=== PATIENT | male | born 1985 | race Hispanic/Latino ===

== ENCOUNTER → 2020-10-17 11:59 | Outpatient (ROUT) | payer OTHER, SELFPAY ==
[2020-10-17 13:04] LABS: COVID19 -Nasal RAPID Negative (Negative)
== END ==
PROVIDERS: Visit Provider Family Medicine
DX: R05 Cough (principal); R52 Pain, unspecified
CPT/HCPCS: 87635

== ENCOUNTER → 2021-02-06 12:39 | Outpatient (ROUT) | payer OTHER, SELFPAY ==
[2021-02-06 13:09] LABS: COVID19 -Nasal RAPID POSITIVE (Negative)
== END ==
PROVIDERS: Visit Provider Family Medicine
DX: U07.1 COVID-19 (principal)
CPT/HCPCS: 87635

== ENCOUNTER → 2022-06-08 13:13 | Outpatient (CLI) | payer OTHER, SELFPAY ==
--- NOTE | 2022-06-08 | DI.MRI.S_ITS ---
PROCEDURE: MR KNEE LT WO CON INDICATIONS: STRAIN OF LEFT KNEE TECHNIQUE: Noncontrast sagittal PD fast spin echo and T2 fast spin echo with fat saturation, sagittal 3-D FLASH with fat saturation; coronal T1 spin echo and PD fast spin echo with fat saturation, and axial PD fast spin echo with fat saturation through the knee. COMPARISON: [facility] Outside Film, RG, KNEE 3VW (LT), 04/15/2022, 15:38. FINDINGS: Image quality: Excellent. Anterior Cruciate Ligament: Intact. Posterior Cruciate Ligament: Intact. Medial Collateral Ligament: Intact. Lateral Collateral Ligament: Intact. Medial Meniscus: Subtle signal abnormality is seen in the peripheral portion of the medial meniscus at the junction of the posterior horn and body extending to the outer third of the tibial articular surface that may represent a subtle horizontal oblique tear. Lateral Meniscus: Partial discoid configuration of the lateral meniscus is seen without a discrete meniscal tear. Medial and Lateral Tendons: The semimembranosus tendon insertions and meniscocapsular junction appear intact. Visualized portions of the pes anserinus tendons appear normal. No abnormal bursal fluid. The long and short heads of the biceps femoris tendon appear intact. The popliteus tendon appears intact. No signs of posterolateral corner injury. Iliotibial band appears normal. Anterior Structures: The quadriceps and patellar tendons appear intact. No patellar subluxation. No femoral trochlear dysplasia or ventral trochlear prominence. No edema in the infrapatellar fat pad. Bones: No acute trabecular bone injury or fracture. A lobular circumscribed T2-hyperintense lesion is seen in the medullary cavity of the distal femur with interspersed fat. Calcified chondroid matrix is seen on prior radiographs. Findings are consistent with a benign enchondroma. Medial Femorotibial Cartilage: Intact. Lateral Femorotibial Cartilage: Intact. Patellofemoral Cartilage: Intact. Soft Tissues: There is a medium sized joint effusion. A small medial popliteal cyst is present. A small amount of fluid tracking along the popliteus tendon sheath. Mild nonspecific subcutaneous prepatellar edema is present. The musculature surrounding the knee is normal in bulk. IMPRESSION: 1. Suspected subtle peripheral horizontal oblique tear the junction of the posterior horn and body of the medial meniscus extending to the outer third of the tibial articular surface. 2. Partial discoid appearance of the lateral meniscus without a discrete meniscal tear. 3. Intact cruciate and collateral ligaments. No acute trabecular bone injury. No focal cartilage defect. 4. Intramedullary lesion at the distal femoral metaphysis has imaging features most consistent with a benign enchondroma. 5. Moderate joint effusion. Small medial and lateral popliteal cysts. Dictated by: Jack Barbour M.D. on 06/08/2022 at 15:06 Approved by: Jack Barbour M.D. on 06/08/2022 at 15:21
== END ==
PROVIDERS: Referring Provider Orthopaedic Surgery; Visit Provider Orthopaedic Surgery
DX: S86.912A Strain of unspecified muscle(s) and tendon(s) at lower leg level, left leg, initial encounter (principal); M25.462 Effusion, left knee; M89.9 Disorder of bone, unspecified; M71.22 Synovial cyst of popliteal space [Baker], left knee
CPT/HCPCS: 73721

== ENCOUNTER 2022-06-18 12:31 | Emergency (ER) | payer OTHER, SELFPAY ==
[2022-06-18 12:49] VITALS: BP 184/111; PULSE 96; RESP 16; TEMP 36.4; O2SAT 100; BMI 30.2
--- NOTE | 2022-06-18 13:09 | ED_ITS ---
HPI - Psych General Chief Complaint: Psychiatric Symptoms Stated Complaint: Withdraws from alcohol. Time Seen by Provider: 06/18/22 12:56 Source: patient Mode of arrival: Ambulatory History of Present Illness HPI Narrative: Patient is a healthy 37-year-old presenting today for alcohol detox and suicidal ideations. He is going through a divorce with his . He states a 50 50 custody of the children. He gets them for a week at a time. He said during that week he feels good and purposeful. However when he does not have his children he says he drinks excessively and has thoughts of hurting himself. Although he has never tried or tempted to hurt himself. He feels just quite depressed. He is angry as his had an affair. He also is on leave from work due to a left knee injury. 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 He does not like living in [facility] he would much rather live in [place] where his family is. However his children are here so he will stay here. 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 He is looking for help with alcohol and depression. Review of Systems Review of Systems Narrative: GENERAL: Denies chills,fever HEENT: Denies throat pain RESPIRATORY: Denies dyspnea, cough, wheezing CARDIOVASCULAR: Denies chest pain, palpitations GASTROINTESTINAL: Denies nausea, vomiting MUSCULOSKELETAL: Denies extremity pain, injury SKIN: No rash, no laceration, no pruritus NEUROLOGIC: Denies weakness, dizziness, headache, numbness PSYCH: See HPI 8 point review of systems is negative except for those stated above and HPI Patient History Social History Smoking Status: Never smoker Smoking Status: Never smoker alcohol intake frequency: 3 or more drinks per day Alcohol type: beer Substance Use Type: does not use Exam Initial Vital Signs Initial Vital Signs: Vital Signs Temperature 97.6 F 06/18/22 12:49 Pulse Rate 96 H 06/18/22 12:49 Respiratory Rate 16 06/18/22 12:49 Blood Pressure 184/111 H 06/18/22 12:49 Pulse Oximetry 100 06/18/22 12:49 Oxygen Delivery Method 06/18/22 12:49 GENERAL: Well-appearing, well-nourished and in no acute distress. HEENT: Head atraumatic,EOMI, pupils reactive, face symmetric, moist mucous membranes CARDIOVASCULAR: Regular rate and rhythm without murmurs, rubs or gallops. RESPIRATORY: Breath sounds equal bilaterally, no wheezes rales or rhonchi. ABDOMEN: Soft, nontender. Normoactive bowel sounds all 4 quadrants. No guarding or rebound. EXTREMITIES: Normal range of motion, no clubbing or edema. Neurovascularly intact NEUROLOGICAL: Alert and oriented x4. SKIN: Warm, dry, no laceration, no petechiae, no rashes or lesions. Course Orders Ordered: ED Orders 06/18/22 13:20 Consult to CONSULTING SYSTEMS ENGINEER - Starch Mangle Tender Stat Vital Signs Vital signs: Vital Signs - 8 hr 06/18/22 12:49 06/18/22 14:22 Temperature 97.6 F Pulse Rate 96 H 85 Respiratory Rate 16 18 Blood Pressure 184/111 H 187/114 H Pulse Oximetry 100 100 Oxygen Delivery Method Room Air Room Air MDM - Psych MDM Narrative Medical decision making narrative: At this time patient is not suicidal. He is not going through DTs. He is here with his mother. He is given outpatient resources by social Work. He is also encouraged to come back if he should need it any time. Discharge Plan Departure Patient Disposition: Home Clinical Impression: Alcohol abuse, Depression Instructions: Depression, DI for Alcohol Use Disorder Activity Restrictions/Additional Instructions: *You have been diagnosed with depression *What to do: Your going through of very hard thing. Social work will call you with resources *Continue to take medications as directed *Follow up with your primary care provider in 2-3 days or call [phone] *Return to ER if you should have suicidal thoughts, depression, shaking hallucinations or any new, worsening or concerning symptoms Referrals: Miscellaneous,Doctor, MD [Primary Care Provider] - Visit Report Forms: Patient Portal/API
[2022-06-18 14:22] VITALS: BP 187/114; PULSE 85; RESP 18; O2SAT 100
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
--- NOTE | 2022-06-18 17:46 | CM.SWNOTE ---
BIOPHARMACEUTICAL REP f/u Note BIOPHARMACEUTICAL REP calls patient and leaves VM stating that PCP clinic will call patient to schedule appt. BIOPHARMACEUTICAL REP provides contact information if patient has any further questions. BIOPHARMACEUTICAL REP reviews EMR and patient is scheduled PCP ED f/u appt with PCP Dr. Pelayo for tomorrow 06/19/22 at 2:30 PM. GERARDO Sarmiento
== END 2022-06-18 14:22 | disposition home or self-care (01) ==
PROVIDERS: Emergency Provider Emergency Medicine
DX: F10.10 Alcohol abuse, uncomplicated (principal); F32.A Depression, unspecified
CPT/HCPCS: 99283

== ENCOUNTER → 2022-06-19 15:48 | Outpatient (CLI) | payer OTHER, SELFPAY ==
[2022-06-19 16:23] LABS: Add Manual Diff / Slide Review NO; Basophils Absolute Auto 0 /uL (0-100); Basophils Percent Auto 0.5 % (0-2); Eosinophils Absolute Auto 100 /uL (0-450); Hematocrit 40.8 % (41-53); Hemoglobin 14.4 g/dL (13.5-17.5); Lymphocytes Absolute Auto 1300 /uL (1100-4500); Lymphocytes Percent Auto 21.3 % (25-40); Mean Corpuscular HGB Conc 35.4 % (30-36); Mean Corpuscular Hemoglobin 33.1 PG (26-34); Mean Corpuscular Volume 93.5 fL (80-100); Monocytes Absolute Auto 400 /uL (0-900); Monocytes Percent Auto 7.3 % (3-14); Neutrophils Absolute Auto 4100 /uL (1500-7000); Neutrophils Percent Auto 69.9 % (50-75); Platelet Count 267 X10^3/uL (150-400); Red Blood Cell Count 4.37 X10^6/uL (4.5-5.9); Red Cell Distribution Width 13.1 % (11.6-14.8); White Blood Cell Count 5.9 X10^3/uL (4.5-11.0)
[2022-06-19 16:24] LABS: Alanine Aminotransferase 138 IU/L (<50); Albumin 4.4 g/dL (3.5-5.0); Albumin Globulin Ratio 1.2 (1.0-2.8); Alkaline Phosphatase 88 U/L (38-126); Aspartate Aminotransferase 108 IU/L (17-59); BUN Creatinine Ratio 16.9 (6-22); Bilirubin Total 0.7 mg/dL (0.2-1.3); Blood Urea Nitrogen 12 mg/dL (9-20); Calcium 9.5 mg/dL (8.4-10.2); Carbon Dioxide 27 mmol/L (22-32); Chloride 99 mmol/L (98-107); Estimated Glomerular Filt Rate > 60 mL/min (>60); Globulin 3.6 g/dL (1.7-4.1); Glucose 302 mg/dL (70-100); HEMOLYSIS < 15 (0-50); Potassium 4.3 mmol/L (3.4-5.1); Sodium 135 mmol/L (137-145)
[2022-06-19 16:50] LABS: UR Morphine/Opiate cutoff 300 Negative (Negative); Ur Creatinine Normal (Normal); Ur Specific Gravity Normal (Normal); Urine Amphetamines Negative (Negative); Urine Barbiturates Negative (Negative); Urine Benzodiazepines Negative (Negative); Urine Cocaine Negative (Negative); Urine MDMA Negative (Negative); Urine Methadone Negative (Negative); Urine Methamphetamines Negative (Negative); Urine Oxycodone Negative (Negative); Urine Phencyclidine Negative (Negative); Urine Tetrahydrocannabinol Negative (Negative); Urine Tricyclic Antidepressant Negative (Negative); Urine pH Normal (Normal)
[2022-06-19 16:54] LABS: TSH w/ Reflex to FT4 1.43 uIU/mL (0.47-4.68)
[2022-06-19 19:07] LABS: Erythrocyte Sedimentation Rate 13 MM/HR (0-15)
[2022-06-20 07:18] LABS: Hemoglobin A1C% w Est Avg Glu 9.1 % (4.0-6.0)
== END ==
PROVIDERS: PCP Pediatrics; Referring Provider Pediatrics; Visit Provider Pediatrics
DX: F10.10 Alcohol abuse, uncomplicated (principal); F32.A Depression, unspecified; I10 Essential (primary) hypertension; R73.9 Hyperglycemia, unspecified
CPT/HCPCS: 36415; 80053; 80305; 83036; 84443; 85025; 85651

== ENCOUNTER 2023-07-08 19:15 | Emergency (ER) | payer OTHER, MEDICAID, SELFPAY ==
[2023-07-08] VITALS (11 sets, daily range): BP systolic 102–145; BP diastolic 63–85; PULSE 70–91; RESP 14; TEMP 36.4–37.9; O2SAT 92–96
[2023-07-08] MEDS: SODIUM CHLORIDE 0.9% 500 ML 1000 ML IV (19:30)
[2023-07-08 19:45] LABS: Acetaminophen < 10 ug/mL (10-30); Alanine Aminotransferase 32 IU/L (<50); Albumin 4.5 g/dL (3.5-5.0); Albumin Globulin Ratio 1.2 (1.0-2.8); Alkaline Phosphatase 78 U/L (38-126); Aspartate Aminotransferase 36 IU/L (17-59); Bilirubin Total 0.3 mg/dL (0.2-1.3); Blood Urea Nitrogen 9 mg/dL (9-20); Carbon Dioxide 28 mmol/L (22-32); Chloride 98 mmol/L (98-107); Estimated Glomerular Filt Rate > 60 mL/min (>60); Globulin 3.8 g/dL (1.7-4.1); Glucose 299 mg/dL (70-100); HEMOLYSIS < 15 (0-50); Potassium 4.4 mmol/L (3.4-5.1); Salicylate < 1.0 mg/dL (<20); Sodium 140 mmol/L (137-145); Total Protein 8.3 g/dL (6.3-8.2)
[2023-07-08 19:48] LABS: COVID19 -Nasal RAPID Negative (Negative)
[2023-07-08 19:53] LABS: Add Manual Diff / Slide Review NO; Basophils Absolute Auto 0 /uL (0-100); Basophils Percent Auto 0.3 % (0-2); Eosinophils Absolute Auto 100 /uL (0-450); Eosinophils Percent Auto 0.7 % (2-4); Hematocrit 45.4 % (41-53); Lymphocytes Absolute Auto 4000 /uL (1100-4500); Lymphocytes Percent Auto 45.1 % (25-40); Mean Corpuscular HGB Conc 35.2 % (30-36); Mean Corpuscular Hemoglobin 33.7 PG (26-34); Mean Corpuscular Volume 95.6 fL (80-100); Monocytes Absolute Auto 800 /uL (0-900); Monocytes Percent Auto 9.6 % (3-14); Neutrophils Absolute Auto 3900 /uL (1500-7000); Neutrophils Percent Auto 44.3 % (50-75); Platelet Count 328 X10^3/uL (150-400); Red Blood Cell Count 4.74 X10^6/uL (4.5-5.9); Red Cell Distribution Width 14.6 % (11.6-14.8); White Blood Cell Count 8.8 X10^3/uL (4.5-11.0)
[2023-07-08 20:01] LABS: Free T4, Direct Thyroxine 0.87 ng/dL (0.78-2.19)
[2023-07-08 20:25] LABS: Ethanol (ETOH) 369 mg/dL
--- NOTE | 2023-07-08 21:56 | ED.ALCOHOL ---
HPI - Alcohol General Chief Complaint: Toxicology Problem Stated Complaint: ETOH Time Seen by Provider: 07/08/23 21:54 Source: patient and EMS Mode of arrival: EMS History of Present Illness HPI narrative: Patient 38-year-old male presents today with alcohol intoxication. He was found happened half out of his car states that he drove after drinking alcohol to go to his son's baseball game. After being in the ED he now reports that that is a huge mistake he is extremely tearful. He reports that he is suicidal when he drinks but he is no longer suicidal he wants to be around for his kids. He states that he is very depressed. He has not seen his kids for his month his ex- has been keeping his kids from him. Adamant that he not want to hurt himself reports that he has a good job. He is in AA does not seem to be helping a whole lot. He denies drinking daily but seems to binge drink. He denies any injury Related Data Previous Rx's Medication Instructions Recorded blood sugar diagnostic (Blood #100 ea 07/13/22 Glucose Test strips) blood-glucose meter #1 ea 07/13/22 lancets 33 gauge (BD Ultra Fine #100 ea 07/13/22 Lancets) lisinopril 20 mg tablet 20 mg PO DAILY #90 tabs 11/07/22 atenolol 50 mg tablet (Tenormin) 50 mg PO DAILY #90 tabs 05/01/23 sertraline 50 mg tablet 50 mg PO DAILY anxiety and 05/01/23 depression #90 tabs metformin 1,000 mg tablet See Rx Instructions .Route 05/15/23 .COMPLEX #90 tabs Allergies Allergy/AdvReac Type Severity Reaction Status Date / Time No Known Drug Allergies Allergy Verified 07/08/23 19:24 Review of Systems Review of Systems ROS Unobtainable: All systems reviewed & are unremarkable except as noted in HPI and below Patient History Medical History (Updated 07/08/23 @ 23:21 by Jina Lee DO) DM type 2 (diabetes mellitus, type 2) Hearing loss Hypertension (~2013) Leukemia (~2013) Family History (Updated 07/02/22 @ 20:27 by Elisa Waterman) Father Status post bilateral hip replacements Hypertension Mother Diabetes mellitus Hypertension Hyperlipidemia Fibromyalgia Social History Smoking Status: Never smoker Smoking Status: Never smoker alcohol intake frequency: 3 or more drinks per day Alcohol type: beer Substance Use Type: does not use Exam Initial Vital Signs Initial Vital Signs: Vital Signs Temperature 100.3 F H 07/08/23 19:21 Pulse Rate 70 07/08/23 19:21 Respiratory Rate 14 07/08/23 19:21 Blood Pressure 122/78 07/08/23 19:21 Pulse Oximetry 93 07/08/23 19:21 Oxygen Delivery Method Room Air 07/08/23 19:21 GENERAL: Alert well-appearing 38 old male HEENT: Head atraumatic,EOMI, pupils reactive, face symmetric, moist mucous membranes CARDIOVASCULAR: Regular rate and rhythm without murmurs, rubs or gallops. RESPIRATORY: Breath sounds equal bilaterally, no wheezes rales or rhonchi. ABDOMEN: Soft, nontender. Normoactive bowel sounds all 4 quadrants. No guarding or rebound. EXTREMITIES: Normal range of motion, no clubbing or edema. Neurovascularly intact NEUROLOGICAL: Alert and oriented x4. SKIN: Warm, dry, no laceration, no petechiae, no rashes or lesions. Course Orders Ordered: ED Orders 07/08/23 19:26 Acetaminophen Stat Complete Blood Count AUTO DIFF Stat Comprehensive Metabolic Panel Stat Ethanol (ETOH) Stat Free T4, Direct Thyroxine Stat Salicylate Stat Thyroid Stimulating Hormone Stat 07/08/23 19:29 COVID19 -Nasal RAPID Stat 07/08/23 21:57 Urine Drug Screen, Rapid Stat 07/08/23 22:10 CT head/brain wo con Stat Discontinued Medications Sodium Chloride (Sodium Chloride 0.9% 500 Ml) 1,000 ml IV BOLUS ONE Stop: 07/08/23 19:47 Last Admin: 07/08/23 19:30 Dose: 1,000 ml Documented By: Vital Signs Vital signs: Vital Signs - 8 hr 07/08/23 20:00 07/08/23 20:00 07/08/23 20:30 Temperature Pulse Rate 88 90 Blood Pressure 102/63 Pulse Oximetry 92 92 07/08/23 21:00 07/08/23 21:00 07/08/23 21:30 Temperature Pulse Rate 83 85 Blood Pressure 123/77 Pulse Oximetry 96 92 07/08/23 22:00 07/08/23 22:00 07/08/23 22:15 Temperature 97.6 F Pulse Rate 88 Blood Pressure 145/85 H Pulse Oximetry 96 MDM - Alcohol Lab Data 07/08/23 19:26 07/08/23 19:26 Labs: Lab Results 07/08/23 07/08/23 07/08/23 Range/Units 19:26 19:26 19:26 WBC 8.8 (4.5-11.0) X10^3/uL RBC 4.74 (4.5-5.9) X10^6/uL Hgb 16.0 (13.5-17.5) g/dL Hct 45.4 (41-53) % MCV 95.6 (80-100) fL MCH 33.7 (26-34) PG MCHC 35.2 (30-36) % RDW 14.6 (11.6-14.8) % Plt Count 328 (150-400) X10^3/uL Neut % (Auto) 44.3 L (50-75) % Lymph % (Auto) 45.1 H (25-40) % [place] % (Auto) 9.6 (3-14) % Eos % (Auto) 0.7 L (2-4) % Baso % (Auto) 0.3 (0-2) % Neut # (Auto) 3900 (2505-4327) /uL Lymph # (Auto) 4000 (9929-5263) /uL [place] # (Auto) 800 (0-900) /uL Eos # (Auto) 100 (0-450) /uL Baso # (Auto) 0 (0-100) /uL Sodium 140 (137-145) mmol/L Potassium 4.4 (3.4-5.1) mmol/L Chloride 98 (98-107) mmol/L Carbon Dioxide 28 (22-32) mmol/L BUN 9 (9-20) mg/dL Creatinine 0.82 (0.66-1.25) mg/dL Estimated GFR > 60 (>60) mL/min BUN/Creatinine Ratio 11.0 (6-22) Glucose 299 H (70-100) mg/dL Calcium 9.0 (8.4-10.2) mg/dL Total Bilirubin 0.3 (0.2-1.3) mg/dL AST 36 (17-59) IU/L ALT 32 (<50) IU/L Alkaline Phosphatase 78 (38-126) U/L Total Protein 8.3 H (6.3-8.2) g/dL Albumin 4.5 (3.5-5.0) g/dL Globulin 3.8 (1.7-4.1) g/dL Albumin/Globulin Ratio 1.2 (1.0-2.8) TSH 0.810 (0.47-4.68) uIU/mL Free T4 0.87 (0.78-2.19) ng/dL Salicylates < 1.0 (<20) mg/dL U Opiates 300ng/mL cut (Negative) Ur Oxycodone Screen (Negative) Urine Methadone Screen (Negative) Acetaminophen < 10 (10-30) ug/mL Ur Barbiturates Screen (Negative) U Tricyclic Antidepress (Negative) Ur Phencyclidine Scrn (Negative) Ur Amphetamines Screen (Negative) U Methamphetamines Scrn (Negative) Ur MDMA Scrn (Ecstasy) (Negative) U Benzodiazepines Scrn (Negative) Urine Cocaine Screen (Negative) U Marijuana (THC) Screen (Negative) Ethyl Alcohol 369 H ( - 10) mg/dL SARS-CoV-2 (PCR) (Negative) 07/08/23 07/08/23 Range/Units 19:29 21:57 WBC (4.5-11.0) X10^3/uL RBC (4.5-5.9) X10^6/uL Hgb (13.5-17.5) g/dL Hct (41-53) % MCV (80-100) fL MCH (26-34) PG MCHC (30-36) % RDW (11.6-14.8) % Plt Count (150-400) X10^3/uL Neut % (Auto) (50-75) % Lymph % (Auto) (25-40) % [place] % (Auto) (3-14) % Eos % (Auto) (2-4) % Baso % (Auto) (0-2) % Neut # (Auto) (0188-5224) /uL Lymph # (Auto) (2443-1057) /uL [place] # (Auto) (0-900) /uL Eos # (Auto) (0-450) /uL Baso # (Auto) (0-100) /uL Sodium (137-145) mmol/L Potassium (3.4-5.1) mmol/L Chloride (98-107) mmol/L Carbon Dioxide (22-32) mmol/L BUN (9-20) mg/dL Creatinine (0.66-1.25) mg/dL Estimated GFR (>60) mL/min BUN/Creatinine Ratio (6-22) Glucose (70-100) mg/dL Calcium (8.4-10.2) mg/dL Total Bilirubin (0.2-1.3) mg/dL AST (17-59) IU/L ALT (<50) IU/L Alkaline Phosphatase (38-126) U/L Total Protein (6.3-8.2) g/dL Albumin (3.5-5.0) g/dL Globulin (1.7-4.1) g/dL Albumin/Globulin Ratio (1.0-2.8) TSH (0.47-4.68) uIU/mL Free T4 (0.78-2.19) ng/dL Salicylates (<20) mg/dL U Opiates 300ng/mL cut Negative (Negative) Ur Oxycodone Screen Negative (Negative) Urine Methadone Screen Negative (Negative) Acetaminophen (10-30) ug/mL Ur Barbiturates Screen Negative (Negative) U Tricyclic Antidepress Negative (Negative) Ur Phencyclidine Scrn Negative (Negative) Ur Amphetamines Screen Negative (Negative) U Methamphetamines Scrn Negative (Negative) Ur MDMA Scrn (Ecstasy) Negative (Negative) U Benzodiazepines Scrn Negative (Negative) Urine Cocaine Screen Negative (Negative) U Marijuana (THC) Screen Negative (Negative) Ethyl Alcohol ( - 10) mg/dL SARS-CoV-2 (PCR) Negative (Negative) Point of Care Testing Glucose POC 293 Urine Dip Bedside Urine Glucose 500 mg/dl Bedside Urine Bilirubin - Negative Bedside Urine Ketone - Negative Urine Specific [place] 1.005 Bedside Urine Occult Blood - Negative Bedside Urine pH 6.0 Bedside Urine Protein - Negative Bedside Urine Urobilinogen - Negative Bedside Urine Nitrite - Negative Bedside Urine Leukocytes - Negative Esterase Imaging Data CT scan - head: Radiologist's Impressoin: PROCEDURE:? CT HEAD/BRAIN WO CON ? INDICATIONS:? etoh found unresponsive ? TECHNIQUE:? Noncontrast 4.5 mm thick angled axial sections acquired from the foramen magnum to the vertex, with coronal and sagittal reformats.? For radiation dose reduction, the following was used:? automated exposure control, adjustment of mA and/or kV according to patient size.? ? COMPARISON:? [facility], CT, CT HEAD WITHOUT CONTRAST, 11/18/2021, 19:20. ? FINDINGS:? Image quality:? Excellent.? ? CSF spaces:? Basal cisterns are patent.? No extra-axial fluid collections.? Ventricles are normal in size and shape.? ? Brain:? No intracranial hemorrhage or midline shift.? Luis-white matter interface appears preserved.? Left parafalcine calcification measuring up to 1.6 cm redemonstrated.? ? Skull and face:? Calvarium and visualized facial bones are intact, without suspicious lesions.? ? Sinuses:? Visualized sinuses and mastoids are clear.? ? IMPRESSION:? ? 1. No acute intracranial abnormality.? ? ? Dictated by: Carlos Dykes M.D. on 07/08/2023 at 23:14 MDM Narrative Medical decision making narrative: Alert 38-year-old male no tearful after few hours in the ED. He is intoxicated with alcohol level of 369. He admits that he screwed up drinking and driving. He thinks that he probably was suicidal but is no longer suicidal. He admits to being depressed wanting help with depression alcohol abuse. He does go to AA does not feel like it is quite working. Other blood work has been reviewed clinical significant. Head CT ordered and is negative secondary to EtOH found unresponsive in a car. There is no evidence trauma. Blood work has been reviewed only pertinent lab value is alcohol at 369. No elevation of bilirubin liver enzymes. No leukocytosis or anemia. Son at bedside to take him home Discharge Plan Departure Patient Disposition: Home Clinical Impression: Alcoholic intoxication Instructions: DI for Alcohol Use Disorder Activity Restrictions/Additional Instructions: *You have been diagnosed with alcohol intoxication *What to do: At this time I recommend [facility] or other dual placement for alcohol withdrawal and mental health. If you are feeling suicidal or having suicidal thoughts: Call: Suicide Hotline: 288 Visit: www.[employer]org Text: 356735 *Continue to take medications as directed *Follow up with your primary care provider in 2-3 days or call [phone] *Return to ER if you should have shaking tremors seizure or any new, worsening or concerning symptoms Prescriptions: No Action (DME) Blood Glucose Test Strip See Rx Instructions .ROUTE .MEDSUPPLY Qty: 100 3RF Rx Instructions: Check BG 1x daily (DME) lancets [BD Ultra Fine Lancets] 33 gauge misc See Rx Instructions .ROUTE .MEDSUPPLY Qty: 100 3RF Rx Instructions: check BG 1x daily (DME) blood-glucose meter Kit See Rx Instructions .ROUTE .MEDSUPPLY Qty: 1 0RF Rx Instructions: As directed sertraline 50 mg tablet 50 mg PO DAILY Qty: 90 0RF Rx Instructions: take with methylfolate. atenolol [Tenormin] 50 mg tablet 50 mg PO DAILY Qty: 90 0RF metformin 1,000 mg tablet See Rx Instructions .ROUTE .COMPLEX Qty: 90 0RF Dose Instruction: TAKE 1 TABLET BY MOUTH TWICE DAILY WITH MEALS, CAN START WITH 1/2 TABLET AND INCREASE TO 1 TABLET TWICE DAILY TOLERATED. Rx Instructions: TAKE 1 TABLET BY MOUTH TWICE DAILY WITH MEALS, CAN START WITH 1/2 TABLET AND INCREASE TO 1 TABLET TWICE DAILY TOLERATED. lisinopril 20 mg tablet 20 mg PO DAILY Qty: 90 0RF Referrals: Miri Pineda DO [Primary Care Provider] - Stand Alone Forms: Patient Portal/API
--- NOTE | 2023-07-08 22:10 | DI.CT.S_ITS ---
PROCEDURE: CT HEAD/BRAIN WO CON INDICATIONS: etoh found unresponsive TECHNIQUE: Noncontrast 4.5 mm thick angled axial sections acquired from the foramen magnum to the vertex, with coronal and sagittal reformats. For radiation dose reduction, the following was used: automated exposure control, adjustment of mA and/or kV according to patient size. COMPARISON: [facility], CT, CT HEAD WITHOUT CONTRAST, 11/18/2021, 19:20. FINDINGS: Image quality: Excellent. CSF spaces: Basal cisterns are patent. No extra-axial fluid collections. Ventricles are normal in size and shape. Brain: No intracranial hemorrhage or midline shift. Luis-white matter interface appears preserved. Left parafalcine calcification measuring up to 1.6 cm redemonstrated. Skull and face: Calvarium and visualized facial bones are intact, without suspicious lesions. Sinuses: Visualized sinuses and mastoids are clear. IMPRESSION: 1. No acute intracranial abnormality. Dictated by: Carlos Dykes M.D. on 07/08/2023 at 23:14 Approved by: Carlos Dykes M.D. on 07/08/2023 at 23:16
[2023-07-08 22:25] LABS: UR Morphine/Opiate cutoff 300 Negative (Negative); Ur Creatinine Normal (Normal); Ur Specific Gravity Normal (Normal); Urine Amphetamines Negative (Negative); Urine Barbiturates Negative (Negative); Urine Benzodiazepines Negative (Negative); Urine Cocaine Negative (Negative); Urine MDMA Negative (Negative); Urine Methadone Negative (Negative); Urine Methamphetamines Negative (Negative); Urine Oxycodone Negative (Negative); Urine Phencyclidine Negative (Negative); Urine Tetrahydrocannabinol Negative (Negative); Urine Tricyclic Antidepressant Negative (Negative); Urine pH Normal (Normal)
--- NOTE | 2023-07-08 22:40 | PC.NURSE ---
Pt removed own IV. Bleeding controlled. Pt also removed hospital band. Pt pacing in room. Aware of needing to wait for safe ride home and results of CT head before discharge. Pt redirectable at this time.
== END 2023-07-08 23:25 | disposition home or self-care (01) ==
PROVIDERS: Emergency Provider Emergency Medicine; PCP Family Medicine
DX: F10.129 Alcohol abuse with intoxication, unspecified (principal); Y90.8 Blood alcohol level of 240 mg/100 ml or more; Z20.822 Contact with and (suspected) exposure to COVID-19
CPT/HCPCS: 36415; 70450; 80053; 80305; 80320; 80329; 81003; 82962; 84439; 84443; 85025; 87635; 99284; C9803; G0480

== ENCOUNTER 2023-08-13 17:51 | Emergency (ER) | payer OTHER, MEDICAID, SELFPAY ==
[2023-08-13 17:54] VITALS: BP 192/115; PULSE 107; RESP 20; TEMP 36.6; O2SAT 99; BMI 29.8
[2023-08-13] MEDS: SODIUM CHLORIDE 0.9% 1,000 ML 1000 ML IV (19:00)
[2023-08-13] MEDS: PHENobarbital 65 MG/ML VIAL 260 MG IV (19:00)
--- NOTE | 2023-08-13 19:00 | CM.SWNOTE ---
TELEGRAPHIC TYPEWRITER OPERATOR CHIEF Assessment TELEGRAPHIC TYPEWRITER OPERATOR CHIEF - Computer Graphic Designer Assessment TELEGRAPHIC TYPEWRITER OPERATOR CHIEF/Computer Graphic Designer Assessment Time Spent with Patient Start date 08/13/23 Visit Start Time 18:20 End date 08/13/23 Visit End Time 18:35 Total time Care Management spent on 15 minutes patient visit-in minutes Mental Health Screening Include Onset, Duration, Intensity Presenting Problem Patient presents to ED with son via POV due to concern for SI and depression, patient endorses he has been drinking ETOH daily to cope. Patient endorses his last drink was a 1/5 of vodka and his last drink was last night. Patient endorses he has had thoughts of killing self by overdose, patient denies current SI. Patient endorses when he has been drinking he has been fighting with others, experiencing thoughts that people are out to get him. Patient denies intent to harm or kill anyone. Precipitating Event(s) Patient endorses he has been experiencing a difficult divorce and custody brewer. Patient endorses he has not seen his daughter for a few months. Patient Strengths Patient is voluntary and seeking help. Current Behavioral Health Provider(s) No current MH providers, Include Facility, Provider, Ph. # patient states that he thinks he needs something more than outpatient . Psych. Hx Mental Health and Chemical Patient endorses he is Dependency experiencing anxiety, Depression and SI. Patient has rx for Sertraline [address] Pineda. Patient endorses daily ETOH of 1/5 of vodka. Patient denies any other substances. Family Hx of Behavioral Abuse None reported Psychiatric Hospitalizations (date(s)/ no hx location) Psychosocial information & Support Patient is 38 y/o male who Systems resides in [place]. Patient has support from his 16 y/o son and friends. Patient's mother is listed as contact as well. School/Work Patient works at [employer] Substance Abuse Screening Include Onset, Duration, Intensity Rehab Facilities? ((Date(s), Location(s) No hx ) Patient previously endorsed he has tried AA in the past but it has not been successful. Legal Concerns Legal Matters - Outstanding Issues Patient endorses hx of reckless driving charge, patient denies current charges Mental Status Orientation (Person/Place/Time) A/Ox4 Stated Mood I need help, I'm here for help Affect (Congruent with Mood?) dysthymic, congruent with mood , full range. Thought Content - Specify/Describe Patient endorses hx of hearing Obsessions, Delusions, Hallucinations voices, he states it sounds like the devil inside me. Patient endorses that voices say a lot of things and endorses they are intrusive thoughts. Patient endorses he sees shadows sometimes. Patient endorses paranoia and states he is always worried someone is out to get him and thinks he needs to be on the defense, on edge. Thought Processes (Sengcwv-Dajgbxzf-Krqv coherent, goal oriented Mmszwtpc-Hbikauwj-Qkxkbvbvvm- Ycjoqyvkqgbcsj-Vljjylx-Omzssmpvvtjw- Thought Blocking) Speech (Fiyfqn-Rvbt-Zuqehve-Rapid-Soft- normal/rapid Loud-Pressured) Motor (Rktkll-Olrdpmsld-Uqoj-Other) normal Insight (Auub-Mjih-Jfzm/Limited) fair Judgement (Udmu-Ahys-Iykr/Limited) fair Impulse Control (Adequate-Impaired) adequate Memory (Qlyhceunj-Flpaue-Uhrlax, intact, not formally assessed Impaired-Intact) Concentration (Intact-Impaired) intact Attention (Intact-Impaired) intact Behavior (Appropriate-Inappropriate) appropriate Additional Comment Patient presents as calm, communicative and cooperative. Risk Assessment Suicidal Ideation (Plan) Yes Homicidal Ideation (Plan) No Comment Patient endorses increase in thoughts of and SI. Patient endorses he has had thoughts of overdosing on pills and taking everything. Patient denies current SI. Patient endorses he is here seeking help and wants to address these thoughts. Patient endorses thoughts of HI, denies intent to harm or kill anyone. Patient endorses when he is drinking sometimes he is on edge and will get into physical fights. Patient denies intent to do so. When asked if patient will agree to follow rules and be appropriate with other patients at facility, patient agrees to do so. Intervention Intervention TELEGRAPHIC TYPEWRITER OPERATOR CHIEF enters room to meet with patient, present in room is patient's son. Patient provides consent for 16 y/o son to be present. Patient endorses significant life stressors, SI, hopelessness and depression. Patient endorses he has been coping with ETOH and has been drinking at least a 1/5 of vodka daily. Patient endorses intrusive thoughts, VH, AH and paranoia. Patient endorses that he is seeking inpatient treatment to address substance use and SI. Patient endorses he does not think that outpatient will be helpful at this time and he is in a crisis and in need of emergent help. Patient has presented to the ED twice in the last year with similar presentation and patient has not sought inpatient yet. It is the opinion of this TELEGRAPHIC TYPEWRITER OPERATOR CHIEF that patient is appropriate for and will benefit from voluntary inpatient co- occurring treatment for safety, crisis stabilization and medication management. TELEGRAPHIC TYPEWRITER OPERATOR CHIEF reviews this with ED provider Dr. Rebollar, who indicates agreement and understanding. ED provider to evaluate patient and determine medical clearance. Plan RA Plan ED team to seek dual diagnosis inpatient treatment for patient upon medical clearance . Bethany Douglas, [facility]
[2023-08-13 19:09] LABS: Add Manual Diff / Slide Review NO; Basophils Absolute Auto 100 /uL (0-100); Basophils Percent Auto 0.9 % (0-2); Eosinophils Absolute Auto 100 /uL (0-450); Eosinophils Percent Auto 1.7 % (2-4); Hematocrit 47.5 % (41-53); Hemoglobin 17.1 g/dL (13.5-17.5); Lymphocytes Absolute Auto 3000 /uL (1100-4500); Lymphocytes Percent Auto 51.8 % (25-40); Mean Corpuscular HGB Conc 35.9 % (30-36); Mean Corpuscular Hemoglobin 34.3 PG (26-34); Mean Corpuscular Volume 95.5 fL (80-100); Monocytes Absolute Auto 400 /uL (0-900); Monocytes Percent Auto 6.8 % (3-14); Neutrophils Absolute Auto 2300 /uL (1500-7000); Neutrophils Percent Auto 38.8 % (50-75); Platelet Count 373 X10^3/uL (150-400); Red Blood Cell Count 4.98 X10^6/uL (4.5-5.9); Red Cell Distribution Width 13.5 % (11.6-14.8); White Blood Cell Count 5.9 X10^3/uL (4.5-11.0)
[2023-08-13 19:10] LABS: Appearance Urine UA CLEAR; Bilirubin Urine UA NEGATIVE (NEGATIVE); Color Urine UA YELLOW; Glucose Urine UA NEGATIVE (Negative); Ketones Urine UA TRACE (NEGATIVE); Leukocyte Esterase Urine UA NEGATIVE (NEGATIVE); Nitrite Urine UA NEGATIVE (Negative); Occult Blood Urine UA NEGATIVE (Negative); Protein Urine UA 1+ (Negative); Specific Gravity Urine UA 1.025 (1.000-1.035); Urobilinogen Urine UA 0.2 E.U./dL (0.2); pH Urine UA 5.5 (4.5-8.0)
[2023-08-13 19:14] LABS: UR Morphine/Opiate cutoff 300 Negative (Negative); Ur Creatinine Normal (Normal); Ur Specific Gravity Normal (Normal); Urine Amphetamines Negative (Negative); Urine Barbiturates Negative (Negative); Urine Benzodiazepines Negative (Negative); Urine Cocaine Negative (Negative); Urine MDMA Negative (Negative); Urine Methadone Negative (Negative); Urine Methamphetamines Negative (Negative); Urine Oxycodone Negative (Negative); Urine Phencyclidine Negative (Negative); Urine Tetrahydrocannabinol Negative (Negative); Urine Tricyclic Antidepressant Negative (Negative); Urine pH Normal (Normal)
[2023-08-13 19:17] LABS: COVID19 -Nasal RAPID Negative (Negative)
[2023-08-13 19:18] VITALS: PULSE 95; RESP 18; O2SAT 96
[2023-08-13 19:21] LABS: Acetaminophen < 10 ug/mL (10-30); Alanine Aminotransferase 136 IU/L (<50); Albumin Globulin Ratio 1.1 (1.0-2.8); Alkaline Phosphatase 117 U/L (38-126); Aspartate Aminotransferase 138 IU/L (17-59); BUN Creatinine Ratio 11.6 (6-22); Bilirubin Total 0.7 mg/dL (0.2-1.3); Blood Urea Nitrogen 8 mg/dL (9-20); Carbon Dioxide 22 mmol/L (22-32); Chloride 101 mmol/L (98-107); Estimated Glomerular Filt Rate > 60 mL/min (>60); Ethanol (ETOH) 289 mg/dL; Globulin 4.5 g/dL (1.7-4.1); Glucose 129 mg/dL (70-100); Potassium 4.2 mmol/L (3.4-5.1); Salicylate < 1.0 mg/dL (<20); Sodium 143 mmol/L (137-145); Total Protein 9.5 g/dL (6.3-8.2)
[2023-08-13 19:22] LABS: RBC Urine 0-1/HPF (0-5/HPF); WBC Urine 0-1/HPF (0-5/HPF)
[2023-08-13 19:23] LABS: Bacteria Urine Occasional (0-1); Culture Indicated Urine Cult Not Indicated; Hyaline Casts Urine 1-5/LPF; Squamous Epithelial Cell Urine 0-1 /HPF (0-5/HPF)
[2023-08-13 19:29] LABS: HEMOLYSIS 62 (0-50)
[2023-08-13 20:20] VITALS: BP 183/106; PULSE 103; RESP 18; O2SAT 99
--- NOTE | 2023-08-13 20:45 | ED_ITS ---
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 Patient presents with complaint of states he is almost type he has been depressed he is had thoughts of harming himself he had a plan to take a bunch of pills and overdose. He states he does not have access to any pills. He does not feel suicidal at this time. Patient states that he does think he would benefit from some treatment for his alcohol use and mental health. He states he does sometimes hear voices that tell him to . He states he does not have any other specific statements that they make. He states sometimes sees shadows but does not really see any other visual hallucinations. He notes he does sometimes get very angry easily not usually particular people but states he more in general situations. He states that has been going on for a couple years. He does not feel like he is currently going through any active alcohol withdrawal. He states his last drink was 230 in the morning. Patient states he does follow with a physician for his medications. He is never had any inpatient psychiatric treatment. He is never taken any psychiatric or mental health medications. Patient after discussion would like inpatient treatment but is reluctant to stay tonight he states he is feeling improved. He has a dog he needs to take care of and would like to return tomorrow. He contracts for safety. He states he has responsible family members that he is willing to stay with this evening. Related Data Previous Rx's Medication Instructions Recorded blood sugar diagnostic (Blood #100 ea 07/13/22 Glucose Test strips) blood-glucose meter #1 ea 07/13/22 lancets 33 gauge (BD Ultra Fine #100 ea 07/13/22 Lancets) lisinopril 20 mg tablet 20 mg PO DAILY #90 tabs 11/07/22 atenolol 50 mg tablet (Tenormin) 50 mg PO DAILY #90 tabs 05/01/23 sertraline 50 mg tablet 50 mg PO DAILY anxiety and 05/01/23 depression #90 tabs metformin 1,000 mg tablet See Rx Instructions .Route 05/15/23 .COMPLEX #90 tabs olanzapine 2.5 mg tablet (Zyprexa) 2.5 mg PO BEDTIME #10 tabs 08/13/23 Allergies Allergy/AdvReac Type Severity Reaction Status Date / Time No Known Drug Allergies Allergy Verified 07/08/23 19:24 Review of Systems Review of Systems ROS Unobtainable: All systems reviewed & are unremarkable except as noted in HPI and below Patient History Medical History DM type 2 (diabetes mellitus, type 2) Hearing loss Leukemia (~2013) Hypertension (~2013) Family History Father Status post bilateral hip replacements Hypertension Mother Diabetes mellitus Hypertension Hyperlipidemia Fibromyalgia Social History Smoking Status: Never smoker Smoking Status: Never smoker alcohol intake frequency: 3 or more drinks per day Alcohol type: beer and hard liquor Substance Use Type: does not use Exam Narrative Exam Narrative: GENERAL: Alert and oriented x three, well-appearing male in mild distress. HEENT: Head normocephalic, atraumatic, EOMI, pupils reactive, face symmetric, moist mucous membranes NECK: Supple, full range of motion CARDIOVASCULAR: Regular rate and rhythm without murmurs, rubs or gallops. RESPIRATORY: Breath sounds equal bilaterally, no wheezes rales or rhonchi. ABDOMEN: Soft, nontender. Normoactive bowel sounds all 4 quadrants. No guarding or rebound, rigidity, no mass : No CVA tenderness EXTREMITIES: Normal range of motion, no clubbing or edema. Neurovascularly intact NEUROLOGICAL: Cranial nerves II through XII grossly intact. Moving all extremities, no tremor. Clear speech. SKIN: Warm, dry, no petechiae, no rashes or lesions. PSYCH: Suicidal thoughts, no current active intent. Sometimes has anger issues but denies any homicidal thoughts or intent. Describes some auditory hallucinations with voices that say . Sees shadows but no other visual hallucinations. Initial Vital Signs Initial Vital Signs: Vital Signs Temperature 97.8 F 08/13/23 17:54 Pulse Rate 107 H 08/13/23 17:54 Respiratory Rate 20 08/13/23 17:54 Blood Pressure 192/115 H 08/13/23 17:54 Pulse Oximetry 99 08/13/23 17:54 Oxygen Delivery Method Room Air 08/13/23 17:54 Course Orders Ordered: Discontinued Medications Sodium Chloride (Normal Saline 0.9%) 1,000 mls @ 1,000 mls/hr IV BOLUS ONE Stop: 08/13/23 19:32 Last Infusion: 08/13/23 20:08 Dose: Infused Documented By: Admin: 08/13/23 19:00 Dose: 1,000 mls/hr Documented By: ZEE Olanzapine (Olanzapine 2.5 Mg Tablet) 2.5 mg PO NOW ONE Stop: 08/13/23 21:21 Last Admin: 08/13/23 21:39 Dose: 2.5 mg Documented By: ELISEO Phenobarbital (Phenobarbital 65 Mg/Ml Vial) 260 mg IV NOW ONE Stop: 08/13/23 18:35 Last Admin: 08/13/23 19:00 Dose: 260 mg Documented By: ZEE Vital Signs Vital signs: Vital Signs - 8 hr 08/13/23 22:23 Pulse Rate 104 H Respiratory Rate 20 Blood Pressure 171/102 H Pulse Oximetry 98 Oxygen Delivery Method Room Air MDM - Psych Lab Data 08/13/23 18:50 08/13/23 18:50 Labs: Lab Results 08/13/23 08/13/23 Range/Units 18:50 18:55 WBC 5.9 (4.5-11.0) X10^3/uL RBC 4.98 (4.5-5.9) X10^6/uL Hgb 17.1 (13.5-17.5) g/dL Hct 47.5 (41-53) % MCV 95.5 (80-100) fL MCH 34.3 H (26-34) PG MCHC 35.9 (30-36) % RDW 13.5 (11.6-14.8) % Plt Count 373 (150-400) X10^3/uL Neut % (Auto) 38.8 L (50-75) % Lymph % (Auto) 51.8 H (25-40) % [place] % (Auto) 6.8 (3-14) % Eos % (Auto) 1.7 L (2-4) % Baso % (Auto) 0.9 (0-2) % Neut # (Auto) 2300 (2407-5199) /uL Lymph # (Auto) 3000 (1536-7899) /uL [place] # (Auto) 400 (0-900) /uL Eos # (Auto) 100 (0-450) /uL Baso # (Auto) 100 (0-100) /uL Sodium 143 (137-145) mmol/L Potassium 4.2 (3.4-5.1) mmol/L Chloride 101 (98-107) mmol/L Carbon Dioxide 22 (22-32) mmol/L BUN 8 L (9-20) mg/dL Creatinine 0.69 (0.66-1.25) mg/dL Estimated GFR > 60 (>60) mL/min BUN/Creatinine Ratio 11.6 (6-22) Glucose 129 H (70-100) mg/dL Calcium 10.0 (8.4-10.2) mg/dL Total Bilirubin 0.7 (0.2-1.3) mg/dL AST 138 H (17-59) IU/L ALT 136 H (<50) IU/L Alkaline Phosphatase 117 (38-126) U/L Total Protein 9.5 H (6.3-8.2) g/dL Albumin 5.0 (3.5-5.0) g/dL Globulin 4.5 H (1.7-4.1) g/dL Albumin/Globulin Ratio 1.1 (1.0-2.8) Urine Color Yellow Urine Appearance Clear Urine pH 5.5 (4.5-8.0) Ur Specific [place] 1.025 (1.000-1.035) Urine Protein 1+ H (Negative) Urine Glucose (UA) Negative (Negative) g/dL Urine Ketones Trace H (NEGATIVE) Urine Occult Blood Negative (Negative) Urine Nitrate Negative (Negative) Urine Bilirubin Negative (NEGATIVE) Urine Urobilinogen 0.2 (0.2) E.U./dL Ur Leukocyte Esterase Negative (NEGATIVE) Urine RBC 0-1/hpf (0-5/HPF) Urine WBC 0-1/hpf (0-5/HPF) Ur Squamous Epith Cells 0-1 /hpf (0-5/HPF) Urine Bacteria Occasional (0-1) (None) Hyaline Casts 1-5/lpf (None) Ur Culture Indicated? Cult not indicated Salicylates < 1.0 (<20) mg/dL U Opiates 300ng/mL cut Negative (Negative) Ur Oxycodone Screen Negative (Negative) Urine Methadone Screen Negative (Negative) Acetaminophen < 10 (10-30) ug/mL Ur Barbiturates Screen Negative (Negative) U Tricyclic Antidepress Negative (Negative) Ur Phencyclidine Scrn Negative (Negative) Ur Amphetamines Screen Negative (Negative) U Methamphetamines Scrn Negative (Negative) Ur MDMA Scrn (Ecstasy) Negative (Negative) U Benzodiazepines Scrn Negative (Negative) Urine Cocaine Screen Negative (Negative) U Marijuana (THC) Screen Negative (Negative) Ethyl Alcohol 289 H ( - 10) mg/dL SARS-CoV-2 (PCR) Negative (Negative) ECG Data Attestation: I personally reviewed and interpreted this ECG as follows: Interpretation: Sinus tachycardia rate of 103 ME 174 QRS 80 QTC [address] No acute ST changes. MDM Narrative Medical decision making narrative: 38-year-old male who presents with alcohol abuse as well as possible schizoaffective. Patient has never been formally seen he does describe some auditory hallucinations which sound like have been going on for several years and not just associated with when he stops drinking alcohol. Patient has medical treatment for diabetes and hypertension. He is ETOH is 289. He did receive a dose of phenobarbital and states he does not feel like he is having withdrawal symptoms currently. Drug screen, salicylates tox and labs are otherwise negative and patient is medically cleared. After discussion patient is interested inpatient treatment but does not wish to stay overnight which may happen while searching for a bed. He was open to trying a dose of oral Zyprexa see if this is helpful. Also open to being watched for a little bit after he received us to make sure did not sedate him too much but he would like to be discharged. Patient is agreeable to having via lay reach out to him in the morning to help set up resources and to continue to search for treatment. He agrees that dual diagnosis treatment would be likely helpful. He did meet with our BUSINESS PLANNING DIRECTOR earlier. [facility] contacted and will reach out to patient during the day for follow up call. Discharge Plan Departure Patient Disposition: Home Clinical Impression: Alcohol abuse, Depression with suicidal ideation Instructions: DI for Suicidal Ideation-Adult Activity Restrictions/Additional Instructions: Please follow up with [facility], they are going to reach out to you to help with resources and options for treatment. If you miss their phone call call them back within 30-60 minutes. You may take Zyprexa 1 tablet nightly before bed. If this medication is helpful it can be titrated upwards. You do not have to continue this medication and you can stop it at any time if you are finding that it is having any negative effects. If you're feeling suicidal or having suicidal thoughts, contact the suicide hotline (this is also self referral for resources and assistance through [facility]). . Please return if you are having thoughts of harming yourself or others, if you do not feel you can keep yourself safe, if you are having new or worsening hallucinations or other new or concerning changes. Prescriptions: New olanzapine [Zyprexa] 2.5 mg tablet 2.5 mg PO BEDTIME Qty: 10 0RF No Action (DME) Blood Glucose Test Strip See Rx Instructions .ROUTE .MEDSUPPLY Qty: 100 3RF Rx Instructions: Check BG 1x daily (DME) lancets [BD Ultra Fine Lancets] 33 gauge misc See Rx Instructions .ROUTE .MEDSUPPLY Qty: 100 3RF Rx Instructions: check BG 1x daily (DME) blood-glucose meter Kit See Rx Instructions .ROUTE .MEDSUPPLY Qty: 1 0RF Rx Instructions: As directed sertraline 50 mg tablet 50 mg PO DAILY Qty: 90 0RF Rx Instructions: take with methylfolate. atenolol [Tenormin] 50 mg tablet 50 mg PO DAILY Qty: 90 0RF metformin 1,000 mg tablet See Rx Instructions .ROUTE .COMPLEX Qty: 90 0RF Dose Instruction: TAKE 1 TABLET BY MOUTH TWICE DAILY WITH MEALS, CAN START WITH 1/2 TABLET AND INCREASE TO 1 TABLET TWICE DAILY TOLERATED. Rx Instructions: TAKE 1 TABLET BY MOUTH TWICE DAILY WITH MEALS, CAN START WITH 1/2 TABLET AND INCREASE TO 1 TABLET TWICE DAILY TOLERATED. lisinopril 20 mg tablet 20 mg PO DAILY Qty: 90 0RF Referrals: Miri Pineda DO [Primary Care Provider] - Stand Alone Forms: Patient Portal/API
--- NOTE | 2023-08-13 20:45 | PC.NURSE ---
Provider made aware of patient presentation and vital signs. No new orders at this time.
[2023-08-13] MEDS: OLANZapine 2.5 MG TABLET PO (21:39)
--- NOTE | 2023-08-13 21:49 | PC.NURSE ---
MANAGER EDUCATIONAL NOTE: contacted [facility], regarding resolution appt per dr. Rebollar
[2023-08-13 22:23] VITALS: BP 171/102; PULSE 104; RESP 20; O2SAT 98
--- NOTE | 2023-08-14 05:00 | PC.NURSE ---
COMMUNICATIONS SCIENTIST/OLIVIA NOTE: [facility] contacted for follow up, message no return call this evening. [facility] contacted per Dr. Rebollar for a follow u p phone call to Mr. Cai Today, Spoke to [facility] via telephone with pone number provided.
--- NOTE | 2023-08-14 10:19 | PC.NURSE ---
[facility] called asking about patient and voice message left over night. they are going to pass on the message to their emergency side of things and have them contact either us again or the patient. they said they do not do next day resolution and he has no been seen by them in over a year, so he is no longer considered a patient. passed this message on to my charge nurse, katie aragon, rn
--- NOTE | 2023-08-18 17:44 | PC.NURSE ---
Received phone call from [email or web address] where pt is currently receiving care. Requested provider notes. Faxed to [phone] for ongoing care.
== END 2023-08-13 22:35 | disposition home or self-care (01) ==
PROVIDERS: Emergency Provider Emergency Medicine; PCP Family Medicine
DX: R45.851 Suicidal ideations (principal); F32.A Depression, unspecified; F10.129 Alcohol abuse with intoxication, unspecified; Y90.8 Blood alcohol level of 240 mg/100 ml or more; Z20.822 Contact with and (suspected) exposure to COVID-19
CPT/HCPCS: 36415; 80053; 80305; 80320; 80329; 81001; 85025; 87635; 93005; 96361; 96374; 99284; C9803; G0480; J2560

== ENCOUNTER 2023-09-02 19:19 | Emergency (ER) | payer OTHER, MEDICAID, SELFPAY ==
--- NOTE | 2023-09-02 19:30 | DI.RAD.S_ITS ---
PROCEDURE: XR CHEST 2V INDICATIONS: cough TECHNIQUE: 2 views of the chest were acquired. COMPARISON: [facility], CR, XR CHEST 1 VIEW, 11/18/2021, 19:01. FINDINGS: Surgical changes and devices: None. Lungs and pleura: Lungs are clear. No pleural effusions or pneumothorax. Mediastinum: Mediastinal contours are normal. Heart size is normal. Bones and chest wall: No suspicious bony abnormalities. Soft tissues appear unremarkable. IMPRESSION: No acute cardiopulmonary abnormality is seen. Dictated by: Allison Aguirre M.D. on 09/02/2023 at 20:34 Approved by: Allison Aguirre M.D. on 09/02/2023 at 20:35
[2023-09-02 19:31] VITALS: BP 133/85; PULSE 87; RESP 17; TEMP 36.9; O2SAT 95; BMI 29.1
[2023-09-02 20:24] LABS: COVID19 -Nasal RAPID Negative (Negative)
[2023-09-02] MEDS: ALBUTEROL HFA PREPACK 1 BOX MISC (20:45)
--- NOTE | 2023-09-02 20:54 | ED.URI ---
HPI - URI/Sore Throat General Chief Complaint: Upper Respiratory Symptoms Stated Complaint: sick T-5/cough/blood sugar high Time Seen by Provider: 09/02/23 20:31 Source: patient Mode of arrival: Ambulatory History of Present Illness HPI Narrative: 38-year-old male history of hypertension diabetes presenting today ongoing cough. He reports that for by 1 week he is had shortness of breath and cough. He denies any real chest pain. He is no dyspnea with exertion. He just feels tight may takes a deep breath he coughs. He initially reports he was feeling much worse last week but to be getting a little bit better however it is not really going away. He apparently is going to detox for alcohol and also needs a documented glucose less than 200. He is no abdominal pain nausea or vomiting. He is having mild sore throat. No other symptoms. Related Data Previous Rx's Medication Instructions Recorded blood sugar diagnostic (Blood #100 ea 07/13/22 Glucose Test strips) blood-glucose meter #1 ea 07/13/22 lancets 33 gauge (BD Ultra Fine #100 ea 07/13/22 Lancets) lisinopril 20 mg tablet 20 mg PO DAILY #90 tabs 11/07/22 sertraline 50 mg tablet 50 mg PO DAILY anxiety and 05/01/23 depression #90 tabs metformin 1,000 mg tablet See Rx Instructions .Route 05/15/23 .COMPLEX #90 tabs olanzapine 2.5 mg tablet (Zyprexa) 2.5 mg PO BEDTIME #10 tabs 08/13/23 atenolol 50 mg tablet (Tenormin) 50 mg PO DAILY #90 tabs 08/16/23 Allergies Allergy/AdvReac Type Severity Reaction Status Date / Time No Known Drug Allergies Allergy Verified 09/02/23 19:35 Patient History Medical History DM type 2 (diabetes mellitus, type 2) Hearing loss Leukemia (~2013) Hypertension (~2013) Family History Father Status post bilateral hip replacements Hypertension Mother Diabetes mellitus Hypertension Hyperlipidemia Fibromyalgia Social History Smoking Status: Never smoker Smoking Status: Never smoker alcohol intake frequency: 3 or more drinks per day Alcohol type: beer and hard liquor Substance Use Type: does not use Exam Initial Vital Signs Initial Vital Signs: Vital Signs Temperature 98.5 F 09/02/23 19:31 Pulse Rate 87 09/02/23 19:31 Respiratory Rate 17 09/02/23 19:31 Blood Pressure 133/85 09/02/23 19:31 Pulse Oximetry 95 09/02/23 19:31 Oxygen Delivery Method Room Air 09/02/23 19:31 GENERAL: Alert pleasant well-appearing 38-year-old male and in no acute distress. HEENT: Head atraumatic,EOMI, pupils reactive, face symmetric, moist mucous membranes CARDIOVASCULAR: Regular rate and rhythm without murmurs, rubs or gallops. RESPIRATORY: Breath sounds equal bilaterally, no wheezes rales or rhonchi. No conversational dyspnea coughing with deep breaths ABDOMEN: Soft, nontender. Normoactive bowel sounds all 4 quadrants. No guarding or rebound. EXTREMITIES: Normal range of motion, no clubbing or edema. Neurovascularly intact NEUROLOGICAL: Alert and oriented x4.Normal gait and speech. SKIN: Warm, dry, no laceration, no petechiae, no rashes or lesions. Course Orders Ordered: ED Orders 09/02/23 19:28 COVID19 -Nasal RAPID Stat 09/02/23 19:30 Chest [XR chest 2V] Stat Discontinued Medications Albuterol (Albuterol Hfa Prepack) 1 box MISC SEEINSTR ONE Stop: 09/02/23 20:32 Last Admin: 09/02/23 20:45 Dose: 1 box Documented By: ROBIN Albuterol/Ipratropium (Albuterol/Ipratropium 3 Ml Ampul) 3 ml INH NOW ONE Stop: 09/02/23 20:32 Last Admin: 09/02/23 21:01 Dose: 3 ml Documented By: ROBIN Vital Signs Vital signs: Vital Signs - 8 hr 09/02/23 19:31 09/02/23 21:27 Temperature 98.5 F 98.5 F Pulse Rate 87 78 Respiratory Rate 17 Blood Pressure 133/85 159/86 H Pulse Oximetry 95 96 Oxygen Delivery Method Room Air Room Air MDM - URI/Sore Throat Lab Data Labs: Lab Results 09/02/23 Range/Units 19:28 SARS-CoV-2 (PCR) Negative (Negative) Point of Care Testing Glucose POC 190 Imaging Data Chest x-ray: Radiologist's Impression: PROCEDURE: XR CHEST 2V INDICATIONS: cough TECHNIQUE: 2 views of the chest were acquired. COMPARISON: Located Within [facility], CR, XR CHEST 1 VIEW, 11/18/2021, 19:01. FINDINGS: Surgical changes and devices: None. Lungs and pleura: Lungs are clear. No pleural effusions or pneumothorax. Mediastinum: Mediastinal contours are normal. Heart size is normal. Bones and chest wall: No suspicious bony abnormalities. Soft tissues appear unremarkable. IMPRESSION: No acute cardiopulmonary abnormality is seen. Dictated by: Allison Aguirre M.D. on 09/02/2023 at 20:34 MDM Narrative Medical decision making narrative: At this time patient overall appears well. He is afebrile having upper respiratory like symptoms ongoing for about a week. Glucose is 190 not having any abdominal pain nausea vomiting signs or symptoms of DKA. He does not take insulin so would be unlikely. His COVID test is negative. And overall appears well. He is given albuterol and in inhaler with spacer. He says it did help a little bit. At this time supportive care only no need for antibiotics. Discharge Plan Departure Patient Disposition: Home Clinical Impression: Upper respiratory infection Instructions: DI for Viral Upper Respiratory Infection -- Adult Activity Restrictions/Additional Instructions: *You have been diagnosed with upper respiratory infection *What to do: At this time COVID test is negative. X-ray does not show any pneumonia. You should start to get better but this can take a couple of weeks *Continue to take medications as directed Albuterol inhaler 1-2 puffs with spacer as be for hours if needed for coughing *Follow up with your primary care provider in 2-3 days or call [phone] *Return to ER if you should have increased shortness of breath chest pain nausea vomiting or any new, worsening or concerning symptoms Prescriptions: No Action (DME) Blood Glucose Test Strip See Rx Instructions .ROUTE .MEDSUPPLY Qty: 100 3RF Rx Instructions: Check BG 1x daily (DME) lancets [BD Ultra Fine Lancets] 33 gauge misc See Rx Instructions .ROUTE .MEDSUPPLY Qty: 100 3RF Rx Instructions: check BG 1x daily (DME) blood-glucose meter Kit See Rx Instructions .ROUTE .MEDSUPPLY Qty: 1 0RF Rx Instructions: As directed sertraline 50 mg tablet 50 mg PO DAILY Qty: 90 0RF Rx Instructions: take with methylfolate. metformin 1,000 mg tablet See Rx Instructions .ROUTE .COMPLEX Qty: 90 0RF Dose Instruction: TAKE 1 TABLET BY MOUTH TWICE DAILY WITH MEALS, CAN START WITH 1/2 TABLET AND INCREASE TO 1 TABLET TWICE DAILY TOLERATED. Rx Instructions: TAKE 1 TABLET BY MOUTH TWICE DAILY WITH MEALS, CAN START WITH 1/2 TABLET AND INCREASE TO 1 TABLET TWICE DAILY TOLERATED. atenolol [Tenormin] 50 mg tablet 50 mg PO DAILY Qty: 90 0RF lisinopril 20 mg tablet 20 mg PO DAILY Qty: 90 0RF olanzapine [Zyprexa] 2.5 mg tablet 2.5 mg PO BEDTIME Qty: 10 0RF Referrals: Miri Pineda DO [Primary Care Provider] - Stand Alone Forms: Patient Portal/API
[2023-09-02] MEDS: ALBUTEROL/IPRATROPIUM 3 ML AMPUL INH (21:01)
[2023-09-02 21:27] VITALS: BP 159/86; PULSE 78; TEMP 36.9; O2SAT 96
== END 2023-09-02 21:22 | disposition home or self-care (01) ==
PROVIDERS: Emergency Provider Emergency Medicine; PCP Family Medicine
DX: J06.9 Acute upper respiratory infection, unspecified (principal); Z20.822 Contact with and (suspected) exposure to COVID-19
CPT/HCPCS: 71046; 82962; 87635; 94640; 99283; C9803